=== PATIENT | female | born 1990 | race Caucasian/White ===

== ENCOUNTER 2025-05-26 21:12 | Emergency (ER) | payer MEDICAID ==
[~2025-05-26] VITALS: Ht 167.6 cm; Wt 78.0 kg
[2025-05-26 21:24] VITALS: BP 153/98; PULSE 115; RESP 15; O2SAT 97
--- NOTE | 2025-05-26 22:49 | Physician Documentation ---
History of Present Illness Chief Complaint: See Chief Complaint Stated Complaint: SEE CHIEF COMPLAINT Time Seen by MD: 22:04 HPI Patient is a very pleasant 34-year-old female that presents to the emergency department for evaluation of hands feeling warm times several years. Patient r eports she has had this issue intermittently. Patient is having trouble convincing her thoughts. Patient reports that she is presenting to a drug rehabilitation tomorrow and just would like paperwork stating that she was here this evening. Patient has been educated on the need to return to the emergency department if she has any worsening or recurrent symptoms or any additional concerning symptoms that we discussed here today. Medication Reconciliation Allergies: Coded Allergies: No Known Allergies (Unverified , 05/26/25) Review of Systems ROS As stated above in the HPI, otherwise all systems are reviewed and negative. Physical Exam Vital Signs: Temperature: 97.6, Source: Temporal, Heart Rate: 115, Respiratory Rate: 15, BP: 153/98, Pulse Oximetry: 97, Weight: 78.000 Physical Exam VITALS: Reviewed and as above. GENERAL: Alert, no apparent distress. HEENT: Normocephalic, atraumatic, PERRL, EOMI, dry mucosa, no erythema RESPIRATORY: Lungs clear, normal breath sounds, no respiratory distress. CHEST: No accessory muscle use, no retractions CV: Regular rate, rhythm, no edema, no murmur, No: JVD GI: Soft, non-tender, bowels sounds present, no rebound, guarding, or rigidity BACK: No CVA tenderness, or swelling MUSCULOSKELETAL No deformities, no edema SKIN: Warm and dry, no rash NEURO: Oriented x4, No motor or sensory deficit PSYCH: Normal mood and affect, inability to sit still no agitation noted. Progress Results/Orders Results/Orders Vital Signs 05/26/25 21:24 Temp 97.6 Pulse 115 Resp 15 B/P (MAP) 153/98 Pulse Ox 97 Medical Decision Making Additional information obtaine: other Findings Patient is a very pleasant 34-year-old female that presents to the emergency department for evaluation of hands feeling warm times several years. Patient reports she has had this issue intermittently. Patient is having trouble convincing her thoughts. Patient reports that she is presenting to a drug rehabilitation tomorrow and just would like paperwork stating that she was here this evening. Patient has been educated on the need to return to the emergency department if she has any worsening or recurrent symptoms or any additional concerning symptoms that we discussed here today. Differential Dx:Considerations: Other, N/A Departure Disposition: HOME / SELF CARE / HOMELESS Impression: Primary Impression: General medical exam Condition: Stable Additional Instructions: Patient is a very pleasant 34-year-old female that presents to the emergency department for evaluation of hands feeling warm times several years. Patient reports she has had this issue intermittently. Patient is having trouble convincing her thoughts. Patient reports that she is presenting to a drug rehabilitation tomorrow and just would like paperwork stating that she was here this evening. Patient has been educated on the need to return to the emergency department if she has any worsening or recurrent symptoms or any additional concerning symptoms that we discussed here today. Referrals: NO PRIMARY CARE PROVIDER (PCP) Education Educated: Patient Educated regarding: diagnosis, treatment, prognosis, need for follow up Signature Scribe Signature: A Attestation: Scribed for Raman Georges by SERVANDO Marti . 05/26/25 22:49 RAMAN GEORGES May 26, 2025 22:49
[2025-05-26 22:55] VITALS: TEMP 97.6
== END 2025-05-26 22:56 | disposition home or self-care (01) ==
LOC: ER 21:14
DX: Z00.00 Encounter for general adult medical examination without abnormal findings (principal)
CPT/HCPCS: 99282